=== PATIENT | female | born 1930 | race Caucasian/White ===

== ENCOUNTER 2017-07-08 08:12 | Inpatient (IN) | payer MEDICARE, BC ==
[2017-07-08] MEDS ORDERED: ASPIRIN 81 MG TAB (08:25)
[2017-07-08] MEDS: SOD CHLORIDE 0.9% 1,000 ML IV ×3 (08:25→10:56)
[2017-07-08] MEDS: ASPIRIN 325 MG TAB PO (08:28)
[2017-07-08 08:47] LABS: ADD MAN DIFF? NO
[2017-07-08 08:57] LABS: BASOPHILS % 0.4 % (0.0-2.0); EOSINOPHILS # 0.5 10^3/ul (0.0-0.5); EOSINOPHILS % 4.5 % (0.0-7.0); HEMATOCRIT 35.6 % (37.0-47.0); HEMOGLOBIN 11.5 g/dl (12.0-16.0); LYMPHOCYTES # 2.6 10^3/ul (0.8-2.9); LYMPHOCYTES % 24.1 % (15.0-51.0); MEAN CORPUSCULAR HEMOGLOBIN 29.6 pg (29.0-33.0); MEAN CORPUSCULAR HGB CONC 32.3 g/dl (32.0-37.0); MEAN CORPUSCULAR VOLUME 91.5 fl (82.0-101.0); MEAN PLATELET VOLUME 10.3 fl (7.4-10.4); MONOCYTE # 0.7 10^3/ul (0.3-0.9); MONOCYTES % 6.7 % (0.0-11.0); NEUTROPHIL # 6.9 10^3/ul (1.6-7.5); PLATELET COUNT 289 10^3/UL (140-415); RED BLOOD COUNT 3.89 10^6/ul (4.20-5.40); RED CELL DISTRIBUTION WIDTH 14.5 % (11.5-14.5)
[2017-07-08 08:57] LABS: WHITE BLOOD COUNT 10.9 10^3/ul (4.8-10.8)
[2017-07-08] MEDS: ASPIRIN 81 MG TAB PO (09:15)
[2017-07-08 09:16] LABS: ANION GAP 14 (8-16); BLOOD UREA NITROGEN 24 mg/dl (7-20); CALCIUM 9.6 mg/dl (8.4-10.2); CARBON DIOXIDE 32 mmol/L (21-31); CHLORIDE 97 mmol/L (97-110); CREATININE 0.85 mg/dl (0.44-1.00); GLUCOSE 156 mg/dl (70-220); POTASSIUM 3.7 mmol/L (3.5-5.1); SODIUM 139 mmol/L (135-144)
[2017-07-08 09:47] LABS: INR 0.97
[2017-07-08] MEDS: HYDROCODONE/APAP (10/325) TAB PO (10:30)
[2017-07-08] MEDS: HEPARIN 25000 UNITS/250 ML 250 ML IV ×2 (10:35→16:34)
[2017-07-08 12:30] LABS: B-TYPE NATRIURETIC PEPTIDE 14400 PG/ML (0-450)
[2017-07-08] MEDS ORDERED: ONDANSETRON 4 MG INJ IV (14:00)
[2017-07-08] MEDS: METOPROLOL 50 MG TAB PO ×2 (14:00→20:42)
[2017-07-08] MEDS: HEPARIN 1000 UNITS/ML 10 ML INJ IV ×2 (14:00→16:30)
[2017-07-08] MEDS ORDERED: morphine 2 MG INJ IV (14:00)
[2017-07-08] MEDS ORDERED: DOCUSATE SODIUM 100 MG CAP PO (14:00)
[2017-07-08] MEDS ORDERED: ACETAMINOPHEN 325 MG TAB PO (14:00)
[2017-07-08] MEDS ORDERED: MAGNESIUM HYDROXIDE 30ML CUP PO (14:00)
[2017-07-08 14:39] LABS: ADD MAN DIFF? NO
[2017-07-08 14:43] LABS: WHITE BLOOD COUNT 8.1 10^3/ul (4.8-10.8)
[2017-07-08 14:43] LABS: BASOPHILS % 0.4 % (0.0-2.0); EOSINOPHILS # 0.5 10^3/ul (0.0-0.5); EOSINOPHILS % 5.5 % (0.0-7.0); HEMATOCRIT 35.4 % (37.0-47.0); HEMOGLOBIN 11.2 g/dl (12.0-16.0); LYMPHOCYTES # 2.1 10^3/ul (0.8-2.9); LYMPHOCYTES % 25.5 % (15.0-51.0); MEAN CORPUSCULAR HEMOGLOBIN 29.1 pg (29.0-33.0); MEAN CORPUSCULAR HGB CONC 31.6 g/dl (32.0-37.0); MEAN CORPUSCULAR VOLUME 91.9 fl (82.0-101.0); MEAN PLATELET VOLUME 9.7 fl (7.4-10.4); MONOCYTE # 0.5 10^3/ul (0.3-0.9); MONOCYTES % 6.5 % (0.0-11.0); NEUTROPHILS % 61.9 % (39.0-77.0); PLATELET COUNT 271 10^3/UL (140-415); RED BLOOD COUNT 3.85 10^6/ul (4.20-5.40); RED CELL DISTRIBUTION WIDTH 14.4 % (11.5-14.5)
[2017-07-08 14:58] LABS: INR 0.98; PARTIAL THROMBOPLASTIN TIME 32.4 Sec (25.0-35.0); PROTIME 13.1 Sec (11.9-14.9)
[2017-07-08 15:00] LABS: CREATINE KINASE 65 IU/L (23-200)
[2017-07-08 15:13] LABS: CK INDEX 4.6; CK-MB 2.98 ng/ml (0.0-2.4)
[2017-07-08] MEDS: IPRATROPIUM (NEB) 0.5 MG/2.5 ML AMP NEB ×2 (17:19→21:40)
[2017-07-08] MEDS: DEXTROSE 5%-0.45% NACL 1,000 ML IV (17:44)
[2017-07-08] MEDS: FISH OIL 1,000 MG CAP PO (19:00)
[2017-07-08] MEDS ORDERED: GLUCAGON 1 MG INJ IM (19:30)
[2017-07-08] MEDS ORDERED: GLUCOSE GEL 15 GRAM TUBE BUCCAL (19:30)
[2017-07-08] MEDS ORDERED: GLUCOSE GEL 15 GRAM TUBE PO ×2 (19:30)
[2017-07-08] MEDS ORDERED: DEXTROSE 50% 50 ML SYRINGE IV ×2 (19:30)
[2017-07-08] MEDS: INSULIN ASPART [NOVOLOG] 3 ML PEN SC (20:52)
[2017-07-08] MEDS: ATORVASTATIN 40 MG TAB PO (20:56)
[2017-07-08 23:00] LABS: CREATINE KINASE 60 IU/L (23-200)
[2017-07-08 23:14] LABS: CK INDEX 4.3; CK-MB 2.56 ng/ml (0.0-2.4); TROPONIN-I 0.938 ng/ml (0.00-0.12)
[2017-07-09 00:52] LABS: PARTIAL THROMBOPLASTIN TIME 130.7 Sec (25.0-35.0)
[2017-07-09] MEDS ORDERED: ALPRAZOLAM 0.5 MG TAB (01:31)
[2017-07-09] MEDS: ACCU-CHEK XX (01:32)
[2017-07-09] MEDS: IPRATROPIUM (NEB) 0.5 MG/2.5 ML AMP NEB ×6 (01:43→20:19)
[2017-07-09] MEDS: ALPRAZOLAM 0.5 MG TAB PO ×2 (02:03→19:01)
[2017-07-09] MEDS: HYDROCODONE/APAP (5/325) TAB PO (02:47)
[2017-07-09] MEDS: DEXTROSE 5%-0.45% NACL 1,000 ML IV (05:03)
[2017-07-09] MEDS: PANTOPRAZOLE 40 MG INJ IV (05:06)
[2017-07-09 07:19] LABS: ADD MAN DIFF? NO
[2017-07-09 07:21] LABS: WHITE BLOOD COUNT 9.1 10^3/ul (4.8-10.8)
[2017-07-09 07:21] LABS: BASOPHILS % 0.4 % (0.0-2.0); EOSINOPHILS # 0.5 10^3/ul (0.0-0.5); EOSINOPHILS % 5.8 % (0.0-7.0); HEMATOCRIT 35.3 % (37.0-47.0); HEMOGLOBIN 11.4 g/dl (12.0-16.0); LYMPHOCYTES # 1.9 10^3/ul (0.8-2.9); LYMPHOCYTES % 20.4 % (15.0-51.0); MEAN CORPUSCULAR HEMOGLOBIN 29.8 pg (29.0-33.0); MEAN CORPUSCULAR HGB CONC 32.3 g/dl (32.0-37.0); MEAN CORPUSCULAR VOLUME 92.2 fl (82.0-101.0); MEAN PLATELET VOLUME 9.7 fl (7.4-10.4); MONOCYTE # 0.6 10^3/ul (0.3-0.9); MONOCYTES % 6.5 % (0.0-11.0); NEUTROPHIL # 6.1 10^3/ul (1.6-7.5); NEUTROPHILS % 66.6 % (39.0-77.0); PLATELET COUNT 282 10^3/UL (140-415); RED BLOOD COUNT 3.83 10^6/ul (4.20-5.40); RED CELL DISTRIBUTION WIDTH 14.1 % (11.5-14.5)
[2017-07-09] MEDS: INSULIN ASPART [NOVOLOG] 3 ML PEN SC ×4 (07:35→21:00)
[2017-07-09 07:48] LABS: ALBUMIN 3.6 g/dl (3.3-4.9); ANION GAP 14 (8-16); BLOOD UREA NITROGEN 12 mg/dl (7-20); CALCIUM 9.3 mg/dl (8.4-10.2); CARBON DIOXIDE 27 mmol/L (21-31); CHLORIDE 103 mmol/L (97-110); CREATININE 0.65 mg/dl (0.44-1.00); GLUCOSE 168 mg/dl (70-220); MAGNESIUM 1.5 mg/dl (1.7-2.5); PHOSPHORUS 3.2 mg/dl (2.5-4.9); POTASSIUM 3.3 mmol/L (3.5-5.1); SODIUM 141 mmol/L (135-144)
[2017-07-09 07:54] LABS: B-TYPE NATRIURETIC PEPTIDE 8990 PG/ML (0-450)
[2017-07-09 08:36] LABS: PARTIAL THROMBOPLASTIN TIME 85.9 Sec (25.0-35.0)
[2017-07-09] MEDS ORDERED: POTASSIUM CHLORIDE (SR) 10 MEQ TAB PO (09:30)
[2017-07-09] MEDS: metFORMIN 500 MG TAB PO (09:45)
[2017-07-09] MEDS: POTASSIUM CHLORIDE 20 MEQ POWDER FOR ORAL SOLN PO (09:46)
[2017-07-09] MEDS: METOPROLOL 50 MG TAB PO ×2 (09:46→21:39)
[2017-07-09 16:16] LABS: PARTIAL THROMBOPLASTIN TIME 59.2 Sec (25.0-35.0)
[2017-07-09] MEDS ORDERED: ALPRAZOLAM 0.5 MG TAB PO (19:00)
[2017-07-09] MEDS: ATORVASTATIN 40 MG TAB PO (21:39)
[2017-07-09] MEDS: HEPARIN 25000 UNITS/250 ML 250 ML IV (21:55)
[2017-07-09 22:49] LABS: PARTIAL THROMBOPLASTIN TIME 64.7 Sec (25.0-35.0)
[2017-07-10] MEDS: IPRATROPIUM (NEB) 0.5 MG/2.5 ML AMP NEB ×6 (00:59→19:57)
[2017-07-10] MEDS: ACCU-CHEK XX (02:00)
[2017-07-10] MEDS: PANTOPRAZOLE (EC) 40 MG TAB PO (05:38)
[2017-07-10] MEDS: metFORMIN 500 MG TAB PO (08:09)
[2017-07-10] MEDS: METOPROLOL 50 MG TAB PO ×2 (08:10→21:00)
[2017-07-10] MEDS: INSULIN ASPART [NOVOLOG] 3 ML PEN SC ×4 (08:11→21:00)
[2017-07-10 09:04] LABS: PARTIAL THROMBOPLASTIN TIME 44.4 Sec (25.0-35.0)
[2017-07-10 09:12] LABS: ALANINE AMINOTRANSFERASE 24 IU/L (13-69); ALBUMIN 4.1 g/dl (3.3-4.9); ALKALINE PHOSPHATASE 101 IU/L (42-121); ANION GAP 16 (8-16); ASPARTATE AMINO TRANSFERASE 40 IU/L (15-46); BILIRUBIN,INDIRECT 0.2 mg/dl (0-1.1); BILIRUBIN,TOTAL 0.2 mg/dl (0.2-1.3); BLOOD UREA NITROGEN 8 mg/dl (7-20); CALCIUM 9.9 mg/dl (8.4-10.2); CARBON DIOXIDE 29 mmol/L (21-31); CHLORIDE 103 mmol/L (97-110); CREATININE 0.62 mg/dl (0.44-1.00); GLUCOSE 155 mg/dl (70-220); POTASSIUM 3.6 mmol/L (3.5-5.1); SODIUM 144 mmol/L (135-144); TOTAL PROTEIN 8.2 g/dl (6.1-8.1)
[2017-07-10] MEDS: HYDROCODONE/APAP (5/325) TAB PO ×2 (09:30→21:22)
[2017-07-10 09:32] LABS: TROPONIN-I 0.492 ng/ml (0.00-0.12)
[2017-07-10] MEDS: HEPARIN 1000 UNITS/ML 10 ML INJ IV (09:53)
[2017-07-10 18:41] LABS: PARTIAL THROMBOPLASTIN TIME > 180.0 Sec (25.0-35.0)
[2017-07-10] MEDS: ALPRAZOLAM 0.25 MG TAB PO (21:20)
[2017-07-10] MEDS: ATORVASTATIN 40 MG TAB PO (21:22)
[2017-07-10 21:46] LABS: PARTIAL THROMBOPLASTIN TIME 34.8 Sec (25.0-35.0)
[2017-07-10 23:39] LABS: PARTIAL THROMBOPLASTIN TIME 30.2 Sec (25.0-35.0)
[2017-07-11] MEDS: IPRATROPIUM (NEB) 0.5 MG/2.5 ML AMP NEB ×7 (01:00→20:56)
[2017-07-11] MEDS: ACCU-CHEK XX (01:18)
[2017-07-11] MEDS: PANTOPRAZOLE (EC) 40 MG TAB PO (05:55)
[2017-07-11 05:57] LABS: PARTIAL THROMBOPLASTIN TIME 29.9 Sec (25.0-35.0)
[2017-07-11 07:10] LABS: TROPONIN-I 0.302 ng/ml (0.00-0.12)
[2017-07-11] MEDS: NITROGLYCERIN (SL) 0.4 MG TAB SL (07:54)
[2017-07-11] MEDS: metFORMIN 500 MG TAB PO (08:13)
[2017-07-11] MEDS: ENOXAPARIN 30 MG/0.3 ML SYG SC (08:14)
[2017-07-11] MEDS: INSULIN ASPART [NOVOLOG] 3 ML PEN SC ×4 (08:14→21:00)
[2017-07-11] MEDS: METOPROLOL 50 MG TAB PO ×2 (08:15→21:00)
[2017-07-11] MEDS: HYDROCODONE/APAP (5/325) TAB PO ×2 (08:15→21:10)
[2017-07-11] MEDS: ALPRAZOLAM 0.25 MG TAB PO ×2 (11:52→21:10)
[2017-07-11] MEDS: ATORVASTATIN 40 MG TAB PO (21:08)
[2017-07-12] MEDS: IPRATROPIUM (NEB) 0.5 MG/2.5 ML AMP NEB ×6 (01:31→20:44)
[2017-07-12] MEDS: ACCU-CHEK XX (01:34)
[2017-07-12] MEDS: PANTOPRAZOLE (EC) 40 MG TAB PO (06:04)
[2017-07-12] MEDS: INSULIN ASPART [NOVOLOG] 3 ML PEN SC ×4 (08:11→20:55)
[2017-07-12] MEDS: METOPROLOL 50 MG TAB PO ×2 (09:00→20:58)
[2017-07-12] MEDS: metFORMIN 500 MG TAB PO (09:07)
[2017-07-12] MEDS: ENOXAPARIN 30 MG/0.3 ML SYG SC (09:08)
[2017-07-12] MEDS: HYDROCODONE/APAP (5/325) TAB PO ×2 (13:01→21:06)
[2017-07-12] MEDS: LIDOCAINE 5% PATCH TD (14:07)
[2017-07-12] MEDS: ATORVASTATIN 40 MG TAB PO (20:55)
[2017-07-12] MEDS: ALPRAZOLAM 0.25 MG TAB PO (21:07)
[2017-07-13] MEDS: IPRATROPIUM (NEB) 0.5 MG/2.5 ML AMP NEB ×6 (01:26→21:15)
[2017-07-13] MEDS: ACCU-CHEK XX (02:00)
[2017-07-13] MEDS: PANTOPRAZOLE (EC) 40 MG TAB PO (05:38)
[2017-07-13 06:27] LABS: ADD MAN DIFF? NO
[2017-07-13 06:34] LABS: WHITE BLOOD COUNT 5.7 10^3/ul (4.8-10.8)
[2017-07-13 06:34] LABS: BASOPHILS % 0.4 % (0.0-2.0); EOSINOPHILS # 0.4 10^3/ul (0.0-0.5); EOSINOPHILS % 6.5 % (0.0-7.0); HEMATOCRIT 32.4 % (37.0-47.0); HEMOGLOBIN 10.2 g/dl (12.0-16.0); LYMPHOCYTES # 1.8 10^3/ul (0.8-2.9); LYMPHOCYTES % 32.2 % (15.0-51.0); MEAN CORPUSCULAR HEMOGLOBIN 29.7 pg (29.0-33.0); MEAN CORPUSCULAR HGB CONC 31.5 g/dl (32.0-37.0); MEAN CORPUSCULAR VOLUME 94.2 fl (82.0-101.0); MEAN PLATELET VOLUME 9.7 fl (7.4-10.4); MONOCYTE # 0.6 10^3/ul (0.3-0.9); NEUTROPHIL # 2.9 10^3/ul (1.6-7.5); NEUTROPHILS % 50.5 % (39.0-77.0); PLATELET COUNT 322 10^3/UL (140-415); RED BLOOD COUNT 3.44 10^6/ul (4.20-5.40); RED CELL DISTRIBUTION WIDTH 14.2 % (11.5-14.5)
[2017-07-13 07:18] LABS: ALANINE AMINOTRANSFERASE 25 IU/L (13-69); ALBUMIN 3.3 g/dl (3.3-4.9); ALKALINE PHOSPHATASE 61 IU/L (42-121); ANION GAP 12 (8-16); ASPARTATE AMINO TRANSFERASE 22 IU/L (15-46); BLOOD UREA NITROGEN 14 mg/dl (7-20); CARBON DIOXIDE 32 mmol/L (21-31); CHLORIDE 100 mmol/L (97-110); CREATININE 0.82 mg/dl (0.44-1.00); GLUCOSE 146 mg/dl (70-220); POTASSIUM 4.3 mmol/L (3.5-5.1); SODIUM 140 mmol/L (135-144); TOTAL PROTEIN 6.6 g/dl (6.1-8.1)
[2017-07-13] MEDS: ALPRAZOLAM 0.25 MG TAB PO ×3 (07:47→21:39)
[2017-07-13] MEDS: metFORMIN 500 MG TAB PO (07:51)
[2017-07-13] MEDS: METOPROLOL 50 MG TAB PO ×2 (07:54→21:40)
[2017-07-13] MEDS: LIDOCAINE 5% PATCH TD (07:56)
[2017-07-13] MEDS: ENOXAPARIN 30 MG/0.3 ML SYG SC (08:00)
[2017-07-13] MEDS: INSULIN ASPART [NOVOLOG] 3 ML PEN SC ×4 (08:01→21:53)
[2017-07-13] MEDS: NITROGLYCERIN (SL) 0.4 MG TAB SL ×2 (09:11→18:09)
[2017-07-13 15:15] LABS: ADD UMIC YES; UR ASCORBIC ACID NEGATIVE (NEGATIVE); UR BACTERIA FEW /HPF (NONE SEEN); UR BILIRUBIN (Dip) NEGATIVE (NEGATIVE); UR BLOOD (Dip) NEGATIVE (NEGATIVE); UR CLARITY SLIGHTLY CLOUDY (CLEAR); UR COLOR YELLOW (YELLOW); UR GLUCOSE (Dip) NEGATIVE (NEGATIVE); UR KETONES (Dip) NEGATIVE (NEGATIVE); UR LEUKOCYTE ESTERASE (Dip) 3+ Leu/ul (NEGATIVE); UR NITRITE (Dip) POSITIVE (NEGATIVE); UR RBC 6 /HPF (0-5); UR SPECIFIC GRAVITY (Dip) 1.011 (1.003-1.030); UR TOTAL PROTEIN (Dip) NEGATIVE (NEGATIVE); UR UROBILINOGEN (Dip) NEGATIVE (NEGATIVE); UR WBC 47 /HPF (0-5)
[2017-07-13] MEDS: ATORVASTATIN 40 MG TAB PO (21:39)
[2017-07-14] MEDS: IPRATROPIUM (NEB) 0.5 MG/2.5 ML AMP NEB ×4 (01:56→12:59)
[2017-07-14] MEDS: ACCU-CHEK XX (02:15)
[2017-07-14] MEDS: PANTOPRAZOLE (EC) 40 MG TAB PO (05:55)
[2017-07-14] MEDS: metFORMIN 500 MG TAB PO (08:49)
[2017-07-14] MEDS: LIDOCAINE 5% PATCH TD (08:52)
[2017-07-14] MEDS: METOPROLOL 50 MG TAB PO (08:54)
[2017-07-14] MEDS: ENOXAPARIN 30 MG/0.3 ML SYG SC (08:55)
[2017-07-14] MEDS: INSULIN ASPART [NOVOLOG] 3 ML PEN SC ×2 (08:55→12:26)
[2017-07-14] MEDS: ALPRAZOLAM 0.25 MG TAB PO (09:03)
[2017-07-14] MEDS: HYDROCODONE/APAP (5/325) TAB PO (09:04)
[2017-07-14] MEDS: GABAPENTIN 100 MG CAP PO ×2 (09:23→13:31)
[2017-07-14] MEDS: NITROGLYCERIN (SL) 0.4 MG TAB SL (10:19)
[2017-07-15] MEDS ORDERED: LEVOTHYROXINE 100 MCG TAB PO (06:00)
[2017-07-15] MEDS ORDERED: PANTOPRAZOLE (EC) 40 MG TAB PO (06:00)
== END 2017-07-14 15:25 | disposition home or self-care (01) | DRG 282 ==
LOC: MS2 07-09 12:30 → E/R 08:12 → ICU 13:44
DX: I21.11 ST elevation (STEMI) myocardial infarction involving right coronary artery (principal); F03.90 Unspecified dementia, unspecified severity, without behavioral disturbance, psychotic disturbance, mood disturbance, and anxiety; E11.9 Type 2 diabetes mellitus without complications; E03.9 Hypothyroidism, unspecified; D63.8 Anemia in other chronic diseases classified elsewhere; G31.84 Mild cognitive impairment of uncertain or unknown etiology; Z66 Do not resuscitate; I25.10 Atherosclerotic heart disease of native coronary artery without angina pectoris; E78.5 Hyperlipidemia, unspecified; G89.4 Chronic pain syndrome; Z74.01 Bed confinement status
CPT/HCPCS: 36415; 70450; 71045; 73030-RT; 80048; 80053; 81001; 82040; 82550; 82553; 82962; 83735; 83880; 84100; 84484; 85025; 85610; 85730; 86850; 86900; 86901; 87075; 87081; 87086; 92526; 92610; 93005; 93306; 94640; 94664; 99291-25

== ENCOUNTER 2017-08-12 14:27 | Inpatient (IN) | payer MEDICARE, BC ==
[2017-08-12 15:48] LABS: ADD MAN DIFF? NO
[2017-08-12 15:53] LABS: WHITE BLOOD COUNT 7.1 10^3/ul (4.8-10.8)
[2017-08-12 15:53] LABS: BASOPHILS % 0.4 % (0.0-2.0); EOSINOPHILS # 0.2 10^3/ul (0.0-0.5); EOSINOPHILS % 2.5 % (0.0-7.0); HEMATOCRIT 36.5 % (37.0-47.0); HEMOGLOBIN 11.6 g/dl (12.0-16.0); LYMPHOCYTES # 2.4 10^3/ul (0.8-2.9); LYMPHOCYTES % 33.4 % (15.0-51.0); MEAN CORPUSCULAR HEMOGLOBIN 28.9 pg (29.0-33.0); MEAN CORPUSCULAR HGB CONC 31.8 g/dl (32.0-37.0); MEAN CORPUSCULAR VOLUME 90.8 fl (82.0-101.0); MEAN PLATELET VOLUME 9.7 fl (7.4-10.4); MONOCYTE # 0.6 10^3/ul (0.3-0.9); MONOCYTES % 7.8 % (0.0-11.0); NEUTROPHIL # 3.9 10^3/ul (1.6-7.5); NEUTROPHILS % 55.6 % (39.0-77.0); PLATELET COUNT 287 10^3/UL (140-415); RED BLOOD COUNT 4.02 10^6/ul (4.20-5.40); RED CELL DISTRIBUTION WIDTH 13.2 % (11.5-14.5)
[2017-08-12 16:12] LABS: ALANINE AMINOTRANSFERASE 20 IU/L (13-69); ALBUMIN 4.1 g/dl (3.3-4.9); ALBUMIN/GLOBULIN RATIO 0.93; ALKALINE PHOSPHATASE 90 IU/L (42-121); ANION GAP 16 (8-16); ASPARTATE AMINO TRANSFERASE 22 IU/L (15-46); BILIRUBIN,INDIRECT 0.2 mg/dl (0-1.1); BILIRUBIN,TOTAL 0.2 mg/dl (0.2-1.3); BLOOD UREA NITROGEN 21 mg/dl (7-20); CALCIUM 9.8 mg/dl (8.4-10.2); CARBON DIOXIDE 33 mmol/L (21-31); CHLORIDE 96 mmol/L (97-110); CREATININE 0.98 mg/dl (0.44-1.00); GLUCOSE 169 mg/dl (70-220); POTASSIUM 4.4 mmol/L (3.5-5.1); SODIUM 141 mmol/L (135-144); TOTAL PROTEIN 8.5 g/dl (6.1-8.1)
[2017-08-12 16:25] LABS: INR 0.96; PROTIME 12.9 Sec (11.9-14.9)
[2017-08-12 16:26] LABS: PARTIAL THROMBOPLASTIN TIME 33.2 Sec (25.0-35.0)
[2017-08-12 16:27] LABS: FREE T4 (FREE THYROXINE) 0.38 ng/dl (0.85-1.93)
[2017-08-12 16:27] LABS: TROPONIN-I < 0.012 ng/ml (0.00-0.12)
[2017-08-12 16:43] LABS: LACTIC ACID 1.5 mmol/L (0.5-2.0)
[2017-08-12 17:49] LABS: ADD UMIC YES; UR ASCORBIC ACID NEGATIVE (NEGATIVE); UR BACTERIA MANY /HPF (NONE SEEN); UR BILIRUBIN (Dip) NEGATIVE (NEGATIVE); UR BLOOD (Dip) 1+ mg/dL (NEGATIVE); UR CLARITY CLOUDY (CLEAR); UR COLOR YELLOW (YELLOW); UR GLUCOSE (Dip) NEGATIVE (NEGATIVE); UR KETONES (Dip) NEGATIVE (NEGATIVE); UR LEUKOCYTE ESTERASE (Dip) 3+ Leu/ul (NEGATIVE); UR NITRITE (Dip) POSITIVE (NEGATIVE); UR RBC 3 /HPF (0-5); UR SPECIFIC GRAVITY (Dip) 1.009 (1.003-1.030); UR TOTAL PROTEIN (Dip) NEGATIVE (NEGATIVE); UR UROBILINOGEN (Dip) NEGATIVE (NEGATIVE); UR WBC > 182 /HPF (0-5)
[2017-08-12] MEDS ORDERED: ONDANSETRON 4 MG INJ IV (18:00)
[2017-08-12] MEDS ORDERED: ACETAMINOPHEN 325 MG TAB PO (18:00)
[2017-08-12] MEDS: LACTATED RINGER'S 1,000 ML IV ×2 (18:02)
[2017-08-12] MEDS: CEFTRIAXONE 1 GM/50 ML (PMX) 50 ML IVPB (18:07)
[2017-08-12 18:58] LABS: LACTIC ACID 1.5 mmol/L (0.5-2.0)
[2017-08-12] MEDS ORDERED: NACL 0.9% 3 ML SYG IV (19:30)
[2017-08-12] MEDS: HEPARIN 5,000 UNIT/0.5 ML VIAL SC (20:12)
[2017-08-12] MEDS ORDERED: CEFTRIAXONE 1 GM/50 ML (PMX) 50 ML IVPB (20:30)
[2017-08-12 21:46] LABS: LACTIC ACID 0.8 mmol/L (0.5-2.0)
[2017-08-13 06:14] LABS: ADD MAN DIFF? NO
[2017-08-13 06:21] LABS: BASOPHILS % 0.6 % (0.0-2.0); EOSINOPHILS # 0.3 10^3/ul (0.0-0.5); EOSINOPHILS % 6.5 % (0.0-7.0); HEMATOCRIT 30.4 % (37.0-47.0); HEMOGLOBIN 9.5 g/dl (12.0-16.0); LYMPHOCYTES % 39.8 % (15.0-51.0); MEAN CORPUSCULAR HEMOGLOBIN 28.4 pg (29.0-33.0); MEAN CORPUSCULAR HGB CONC 31.3 g/dl (32.0-37.0); MEAN CORPUSCULAR VOLUME 90.7 fl (82.0-101.0); MEAN PLATELET VOLUME 9.7 fl (7.4-10.4); MONOCYTE # 0.5 10^3/ul (0.3-0.9); MONOCYTES % 9.9 % (0.0-11.0); NEUTROPHIL # 2.1 10^3/ul (1.6-7.5); PLATELET COUNT 237 10^3/UL (140-415); RED BLOOD COUNT 3.35 10^6/ul (4.20-5.40); RED CELL DISTRIBUTION WIDTH 13.3 % (11.5-14.5)
[2017-08-13 06:51] LABS: ANION GAP 11 (8-16); BLOOD UREA NITROGEN 21 mg/dl (7-20); CALCIUM 8.7 mg/dl (8.4-10.2); CARBON DIOXIDE 34 mmol/L (21-31); CHLORIDE 101 mmol/L (97-110); CREATININE 0.89 mg/dl (0.44-1.00); GLUCOSE 122 mg/dl (70-220); MAGNESIUM 1.6 mg/dl (1.7-2.5); POTASSIUM 3.8 mmol/L (3.5-5.1); SODIUM 142 mmol/L (135-144)
[2017-08-13] MEDS: HEPARIN 5,000 UNIT/0.5 ML VIAL SC ×2 (09:03→21:48)
[2017-08-13] MEDS: DOCUSATE SODIUM 100 MG CAP PO ×2 (10:16→21:43)
[2017-08-13] MEDS ORDERED: ALPRAZOLAM 0.5 MG TAB PO ×2 (11:30)
[2017-08-13] MEDS: METOPROLOL (XL) 50 MG TAB PO (14:10)
[2017-08-13] MEDS: ASPIRIN (EC) 81 MG TAB PO (14:10)
[2017-08-13] MEDS: GABAPENTIN 100 MG CAP PO ×2 (14:10→21:40)
[2017-08-13] MEDS: POLYETHYLENE GLYCOL 17 GM PACKET PO (14:11)
[2017-08-13] MEDS: SENNA TAB PO (14:11)
[2017-08-13] MEDS: FOLIC ACID 1 MG TAB PO (14:11)
[2017-08-13] MEDS: CEFTRIAXONE 1 GM/50 ML (PMX) 50 ML IVPB (18:09)
[2017-08-13] MEDS: ATORVASTATIN 40 MG TAB PO (21:41)
[2017-08-13] MEDS: ALPRAZOLAM 0.25 MG TAB PO (21:41)
[2017-08-14 06:08] LABS: ADD MAN DIFF? NO
[2017-08-14] MEDS: PANTOPRAZOLE (EC) 40 MG TAB PO (06:10)
[2017-08-14] MEDS: LEVOTHYROXINE 100 MCG TAB PO (06:11)
[2017-08-14 06:15] LABS: WHITE BLOOD COUNT 4.6 10^3/ul (4.8-10.8)
[2017-08-14 06:16] LABS: BASOPHILS % 0.6 % (0.0-2.0); EOSINOPHILS # 0.4 10^3/ul (0.0-0.5); EOSINOPHILS % 7.6 % (0.0-7.0); HEMATOCRIT 30.9 % (37.0-47.0); HEMOGLOBIN 9.8 g/dl (12.0-16.0); LYMPHOCYTES # 1.9 10^3/ul (0.8-2.9); LYMPHOCYTES % 41.7 % (15.0-51.0); MEAN CORPUSCULAR HEMOGLOBIN 28.8 pg (29.0-33.0); MEAN CORPUSCULAR HGB CONC 31.7 g/dl (32.0-37.0); MEAN CORPUSCULAR VOLUME 90.9 fl (82.0-101.0); MEAN PLATELET VOLUME 9.3 fl (7.4-10.4); MONOCYTE # 0.5 10^3/ul (0.3-0.9); MONOCYTES % 10.8 % (0.0-11.0); NEUTROPHIL # 1.8 10^3/ul (1.6-7.5); NEUTROPHILS % 39.1 % (39.0-77.0); PLATELET COUNT 246 10^3/UL (140-415)
[2017-08-14 06:48] LABS: ALANINE AMINOTRANSFERASE 25 IU/L (13-69); ALBUMIN 3.3 g/dl (3.3-4.9); ALBUMIN/GLOBULIN RATIO 0.89; ALKALINE PHOSPHATASE 68 IU/L (42-121); ANION GAP 13 (8-16); ASPARTATE AMINO TRANSFERASE 19 IU/L (15-46); BILIRUBIN,INDIRECT 0.2 mg/dl (0-1.1); BILIRUBIN,TOTAL 0.2 mg/dl (0.2-1.3); BLOOD UREA NITROGEN 16 mg/dl (7-20); CALCIUM 9.2 mg/dl (8.4-10.2); CARBON DIOXIDE 34 mmol/L (21-31); CHLORIDE 100 mmol/L (97-110); CREATININE 0.75 mg/dl (0.44-1.00); GLUCOSE 100 mg/dl (70-220); MAGNESIUM 1.8 mg/dl (1.7-2.5); PHOSPHORUS 4.4 mg/dl (2.5-4.9); POTASSIUM 3.8 mmol/L (3.5-5.1); SODIUM 143 mmol/L (135-144)
[2017-08-14] MEDS: FISH OIL 1,000 MG CAP PO (09:00)
[2017-08-14] MEDS: ASPIRIN (EC) 81 MG TAB PO (09:39)
[2017-08-14] MEDS: SENNA TAB PO (09:39)
[2017-08-14] MEDS: METOPROLOL (XL) 50 MG TAB PO (09:39)
[2017-08-14] MEDS: FOLIC ACID 1 MG TAB PO (09:39)
[2017-08-14] MEDS: GABAPENTIN 100 MG CAP PO ×3 (09:40→21:41)
[2017-08-14] MEDS: POLYETHYLENE GLYCOL 17 GM PACKET PO (09:40)
[2017-08-14] MEDS: HEPARIN 5,000 UNIT/0.5 ML VIAL SC ×2 (09:41→21:46)
[2017-08-14] MEDS: ALPRAZOLAM 0.25 MG TAB PO ×3 (09:44→21:41)
[2017-08-14] MEDS: HYDROCODONE/APAP (10/325) TAB PO ×2 (09:47→18:48)
[2017-08-14] MEDS: INFLUENZA VIRUS VACCINE 0.5 ML (DISPENSING) IM* (09:48)
[2017-08-14] MEDS: CEFTRIAXONE 1 GM/50 ML (PMX) 50 ML IVPB (18:03)
[2017-08-14] MEDS: ATORVASTATIN 40 MG TAB PO (21:41)
[2017-08-15] MEDS: PANTOPRAZOLE (EC) 40 MG TAB PO (06:02)
[2017-08-15] MEDS: LEVOTHYROXINE 100 MCG TAB PO (06:03)
[2017-08-15] MEDS: DOCUSATE SODIUM 100 MG CAP PO (06:03)
[2017-08-15] MEDS: HYDROCODONE/APAP (10/325) TAB PO ×2 (06:03→17:25)
[2017-08-15] MEDS: FOLIC ACID 1 MG TAB PO (08:46)
[2017-08-15] MEDS: GABAPENTIN 100 MG CAP PO ×3 (08:46→20:47)
[2017-08-15] MEDS: ASPIRIN (EC) 81 MG TAB PO (08:46)
[2017-08-15] MEDS: SENNA TAB PO (08:46)
[2017-08-15] MEDS: POLYETHYLENE GLYCOL 17 GM PACKET PO (08:47)
[2017-08-15] MEDS: FISH OIL 1,000 MG CAP PO (08:47)
[2017-08-15] MEDS: METOPROLOL (XL) 50 MG TAB PO (08:47)
[2017-08-15] MEDS: HEPARIN 5,000 UNIT/0.5 ML VIAL SC ×2 (08:49→20:50)
[2017-08-15] MEDS: CEFTRIAXONE 1 GM/50 ML (PMX) 50 ML IVPB (17:24)
[2017-08-15] MEDS: ATORVASTATIN 40 MG TAB PO (20:47)
[2017-08-15] MEDS: ALPRAZOLAM 0.25 MG TAB PO (20:52)
[2017-08-16] MEDS: PANTOPRAZOLE (EC) 40 MG TAB PO (06:13)
[2017-08-16] MEDS: LEVOTHYROXINE 100 MCG TAB PO (06:13)
[2017-08-16] MEDS: ASPIRIN (EC) 81 MG TAB PO (08:51)
[2017-08-16] MEDS: FISH OIL 1,000 MG CAP PO ×2 (08:52→09:00)
[2017-08-16] MEDS: HYDROCODONE/APAP (10/325) TAB PO ×3 (08:52→22:17)
[2017-08-16] MEDS: FOLIC ACID 1 MG TAB PO (08:52)
[2017-08-16] MEDS: SENNA TAB PO (08:53)
[2017-08-16] MEDS: METOPROLOL (XL) 50 MG TAB PO (08:54)
[2017-08-16] MEDS: GABAPENTIN 100 MG CAP PO ×3 (08:54→21:03)
[2017-08-16] MEDS: POLYETHYLENE GLYCOL 17 GM PACKET PO (08:54)
[2017-08-16] MEDS: HEPARIN 5,000 UNIT/0.5 ML VIAL SC ×2 (09:00→21:13)
[2017-08-16] MEDS: ALPRAZOLAM 0.25 MG TAB PO ×2 (12:10→21:03)
[2017-08-16] MEDS: CEFTRIAXONE 1 GM/50 ML (PMX) 50 ML IVPB (17:27)
[2017-08-16] MEDS: ATORVASTATIN 40 MG TAB PO (21:03)
[2017-08-17] MEDS: PANTOPRAZOLE (EC) 40 MG TAB PO (06:20)
[2017-08-17] MEDS: LEVOTHYROXINE 100 MCG TAB PO (06:20)
[2017-08-17] MEDS: METOPROLOL (XL) 50 MG TAB PO (08:32)
[2017-08-17] MEDS: GABAPENTIN 100 MG CAP PO ×2 (08:33→13:30)
[2017-08-17] MEDS: SENNA TAB PO (08:33)
[2017-08-17] MEDS: HYDROCODONE/APAP (10/325) TAB PO ×2 (08:33→13:31)
[2017-08-17] MEDS: FOLIC ACID 1 MG TAB PO (08:33)
[2017-08-17] MEDS: POLYETHYLENE GLYCOL 17 GM PACKET PO (08:33)
[2017-08-17] MEDS: ASPIRIN (EC) 81 MG TAB PO (08:33)
[2017-08-17] MEDS: HEPARIN 5,000 UNIT/0.5 ML VIAL SC (08:34)
[2017-08-17] MEDS: FISH OIL 1,000 MG CAP PO (08:38)
== END 2017-08-17 17:20 | disposition hospice, home (50) | DRG 690 ==
LOC: MS2 21:53 → E/R 14:27 → MS2 18:01
DX: N39.0 Urinary tract infection, site not specified (principal); F03.90 Unspecified dementia, unspecified severity, without behavioral disturbance, psychotic disturbance, mood disturbance, and anxiety; F11.20 Opioid dependence, uncomplicated; B96.1 Klebsiella pneumoniae [K. pneumoniae] as the cause of diseases classified elsewhere; K59.00 Constipation, unspecified; Z74.01 Bed confinement status; K56.41 Fecal impaction; B96.20 Unspecified Escherichia coli [E. coli] as the cause of diseases classified elsewhere; G89.4 Chronic pain syndrome
CPT/HCPCS: 36415; 70450; 71045; 80048; 80053; 81001; 83605; 83735; 84100; 84439; 84443; 84484; 85025; 85610; 85730; 87040; 87086; 92610; 93005; 96372; 96374; 97116; 97162; 97165; 97530; 97535; 99291-25